=== PATIENT | male | born 1955 | race Caucasian/White ===

== ENCOUNTER 2017-02-24 14:50 | Emergency (ER) | payer MEDICAID ==
[2017-02-24] MEDS ORDERED: ACETAMINOPHEN 500 MG TAB PO ONE (15:25)
--- NOTE | 2017-02-24 15:27 | EDPHY ---
H & P Stated Complaint: Global H/A ~1wk;has hx Lyme disease Time Seen by Provider: 02/24/17 15:07 HPI/ROS: Chief Complaint: Headache HPI: 61-year-old male with a complicated medical history including cognitive impairment which has been attributed to chronic Lyme disease, sleep apnea, hyponatremia. Patient has been complaining of increasing head pressure last 10 days. Yesterday got significantly worse to the point that today's complaining of 10/10 headache. He is under the care of a rf technician treating he is Lyme disease with chronic cefdinir and minocycline. His partner states that he seems cognitively clear when he is on these medications. She did stop them yesterday thinking that they might be contributing to his headaches. He has not had any fevers or chills. No neck stiffness. No nausea or vomiting. No falls or head injuries. No chest pain or shortness of breath. Currently states the pain is 10/10. It was gradual in nature. ROS: 10 point Review of Systems is negative except as noted in the HPI. PMH: Cognitive impairment, Lyme disease, sleep apnea, BPH, hyponatremia Social History: No smoking, no alcohol, no recreational drug use Family History: non-contributory Physical Exam: Gen: Awake, Alert, No Distress HEENT: Nose: no rhinorrhea Eyes: PERRLA, EOMI Mouth: Moist mucosa Neck: Supple, no meningismus, no lymphadenopathy Chest: nontender, lungs clear to auscultation Heart: S1, S2 normal, no murmur Abd: Soft, non-tender, no guarding Back: no CVA tenderness, no midline tenderness Ext: no edema, non-tender Skin: no rash Neuro: CN II-XII intact, Sensation grossly intact, Strength 5/5 in bilateral upper and lower extremities - Personal History Current Tetanus Diphtheria and Acellular Pertussis (TDAP): No - Medical/Surgical History Other PMH: Lyme disease. sleep apnea. low testoserone. cognitive disorder r/ t Lymes - Social History Smoking Status: Former smoker Constitutional: Initial Vital Signs Temperature (C) 36.5 C 02/24/17 14:56 Heart Rate 88 02/24/17 14:56 Respiratory Rate 18 02/24/17 14:56 Blood Pressure 125/81 H 02/24/17 14:56 O2 Sat (%) 94 02/24/17 14:56 O2 Delivery Mode Room Air Allergies/Adverse Reactions: No Known Allergies Allergy (Unverified 02/24/17 15:01) Home Medications: Medication Instructions Recorded Cefdinir [Omnicef (*)] 300 mg PO BID 02/24/17 Minocycline HCl 100 mg PO BID 02/24/17 Medical Decision Making - Diagnostics Imaging Results: Imaging Impressions Head CT 02/24/17 15:23 Impression: There is no acute intracranial abnormality identified on this unenhanced CT evaluation, or substantial change from the prior exam of 2014. If there is further clinical concern regarding the patient's symptoms, MR imaging is suggested, if not otherwise contraindicated. Findings were discussed with Babak Valverde MD at 16:27, on 02/24/2017. ED Course/Re-evaluation: 61-year-old male with cognitive impairment presenting with several days of worsening headache. He was not sudden onset. Is no fevers or chills no meningismus. No history or exam findings suggestive of acute subarachnoid bleed or meningitis. CT scan of the brain is negative. Blood work is entirely normal. He is improved after Haldol, acetaminophen and Toradol. Will discharge with follow-up as an outpatient. - Data Points Laboratory Results: Laboratory Results 02/24/17 15:20 02/24/17 15:20 02/24/17 02/24/17 15:20 15:20 WBC 6.09 10^3/uL 10^3/uL (3.80-9.50) RBC 5.15 10^6/uL 10^6/uL (4.40-6.38) Hgb 16.0 g/dL g/dL (13.7-17.5) Hct 45.6 % % (40.0-51.0) MCV 88.5 fL fL (81.5-99.8) MCH 31.1 pg pg (27.9-34.1) MCHC 35.1 g/dL g/dL (32.4-36.7) RDW 12.7 % % (11.5-15.2) Plt Count 217 10^3/uL 10^3/uL (150-400) MPV 10.5 fL fL (8.7-11.7) Neut % (Auto) 66.9 % % (39.3-74.2) Lymph % (Auto) 23.3 % % (15.0-45.0) [place] % (Auto) 7.7 % % (4.5-13.0) Eos % (Auto) 0.8 % % (0.6-7.6) Baso % (Auto) 0.8 % % (0.3-1.7) Nucleat RBC Rel Count 0.0 % % (0.0-0.2) Absolute Neuts (auto) 4.07 10^3/uL 10^3/uL (1.70-6.50) Absolute Lymphs (auto) 1.42 10^3/uL 10^3/uL (1.00-3.00) Absolute Monos (auto) 0.47 10^3/uL 10^3/uL (0.30-0.80) Absolute Eos (auto) 0.05 10^3/uL 10^3/uL (0.03-0.40) Absolute Basos (auto) 0.05 10^3/uL 10^3/uL (0.02-0.10) Absolute Nucleated RBC 0.00 10^3/uL 10^3/uL (0-0.01) Immature Gran % 0.5 % % (0.0-1.1) Immature Gran # 0.03 10^3/uL 10^3/uL (0.00-0.10) Sodium 140 mEq/L mEq/L (134-144) Potassium 4.0 mEq/L mEq/L (3.5-5.2) Chloride 109 mEq/L mEq/L (97-110) Carbon Dioxide 19 mEq/l L mEq/l (22-31) Anion Gap 12 mEq/L mEq/L (8-16) BUN 9 mg/dL mg/dL (7-23) Creatinine 1.0 mg/dL mg/dL (0.7-1.3) Estimated GFR > 60 Glucose 112 mg/dL H mg/dL (70-100) Calcium 9.5 mg/dL mg/dL (8.5-10.4) Medications Given: Discontinued Medications Acetaminophen (Tylenol) 1,000 mg PO EDNOW ONE Stop: 02/24/17 15:26 Last Admin: 02/24/17 15:51 Dose: 1,000 mg Ketorolac Tromethamine (Toradol) 15 mg IVP EDNOW ONE Stop: 02/24/17 16:37 Last Admin: 02/24/17 16:40 Dose: 15 mg Departure - Departure Disposition: Home, Routine, Self-Care Clinical Impression: Headache Condition: Good Instructions: Acute Headache (ED) Additional Instructions: Follow up with your primary care physician in 3-4 days for further evaluation. Return to the emergency department for worsening headache, uncontrolled nausea or vomiting, fevers, chills or any other concerns. Referrals: Darell Leach MD [Primary Care Provider] - As per Instructions
[2017-02-24 15:30] LABS: PLATELET COUNT 217 10^3/uL (150-400)
[2017-02-24] MEDS ORDERED: KETOROLAC 15 MG/1 ML SDV IVP ONE (16:36)
[2017-02-24 17:27] VITALS: BP 118/75; PULSE 63; RESP 15; TEMP 98.8; O2SAT 96
== END 2017-02-24 17:30 | disposition home or self-care (01) ==
DX: R51 Headache (principal); Z87.891 Personal history of nicotine dependence
CPT/HCPCS: 96374; J1885

== ENCOUNTER → 2017-04-08 | Outpatient (CLI) | payer MEDICAID ==
[~2017-04-08] MED LIST: IOPAMIDOL (ISOVUE-300) 100 ML BTL ONE
== END ==
LOC: FIMAGING 09:25
PROVIDERS: ATTEND Family Medicine
DX: I70.308 Unspecified atherosclerosis of unspecified type of bypass graft(s) of the extremities, other extremity (principal); R51 Headache; R35.0 Frequency of micturition; R89.9 Unspecified abnormal finding in specimens from other organs, systems and tissues; E27.9 Disorder of adrenal gland, unspecified; I70.0 Atherosclerosis of aorta
CPT/HCPCS: Q9967

== ENCOUNTER → 2017-06-29 | Outpatient (CLI) | payer MEDICAID | LOC: FCPNEURO 20:00 | PROVIDERS: ATTEND Psychiatry & Neurology Sleep Medicine | DX: G47.31 Primary central sleep apnea (principal); G47.33 Obstructive sleep apnea (adult) (pediatric); G47.61 Periodic limb movement disorder ==